=== PATIENT | female | born 1945 | race Caucasian/White ===

== ENCOUNTER 2016-05-24 08:37 | Day surgery (SDC) | payer OTHER ==
[2016-05-22 11:49] VITALS: BMI 23.6
[2016-05-24] MEDS ORDERED: CARBACHOL 0.01% INTRA-OCULAR 1.5 ML VIAL ONE (09:20)
[2016-05-24] MEDS ORDERED: BSS (NA/CA/MG/K) BALANCED SALT SOLUTION OPHTH SOLN 15 ML BOTTLE ONE ×2 (09:20→11:34)
[2016-05-24] MEDS: CIPROFLOXACIN 0.3% EYE DROPS 5 ML BOTTLE ONE ×3 (10:00→10:10)
[2016-05-24] MEDS: PHENYLEPHRINE 2.5% OPHTH SOLN 15 ML BOTTLE ONE ×3 (10:00→10:10)
[2016-05-24] MEDS: CYCLOPENTOLATE 2% OPHTH SOLN 2 ML BOTTLE ONE ×3 (10:00→10:10)
[2016-05-24] MEDS: TROPICAMIDE 1% OPHTH SOLN 15 ML BOTTLE ONE ×3 (10:00→10:10)
[2016-05-24] MEDS ORDERED: MIDAZOLAM HCL 2 MG/2 ML SINGLE DOSE VIAL ONE (11:20)
[2016-05-24] MEDS ORDERED: TETRACAINE 0.5% OPHTH SOLN 2 ML BOTTLE ONE (11:24)
[2016-05-24 12:24] VITALS: TEMP 98.9
[2016-05-24 12:27] VITALS: BP 116/65; PULSE 74
[2016-05-24] MEDS ORDERED: ONDANSETRON 4 MG/2 ML VIAL IVPUSH PRN (16:40)
[2016-05-24] MEDS ORDERED: ACETAMINOPHEN 325 MG TABLET (FP) PO PRN (16:40)
--- NOTE | 2016-07-19 16:52 | OP ---
DATE OF PROCEDURE: 05/24/2016 OPERATIVE PROCEDURE: Lens Phacoemulsification with Posterior Chamber Intraocular Lens Placement Right Eye PREOPERATIVE DIAGNOSIS: Visually Significant Cataract of Right Eye POSTOPERATIVE DIAGNOSIS: Visually Significant Cataract of Right Eye SURGEON: Herb Perla M.D. ANESTHESIA: MAC ANESTHESIOLOGIST: PROCEDURE: The patient was brought to the operating room and placed under monitored anesthesia care by Anesthesia. A drop of Tetracaine was then placed over the right eye. The patient was then prepped and draped in the usual sterile manner. A speculum was then placed over the right eye. The eye was then well irrigated with copious amounts of BSS (balanced salt solution). The operating microscope was then moved into position. A paracentesis was performed using a 15 degree blade. At this point 0.5 mL of 1% preservative-free lidocaine was injected into the anterior chamber. Amvisc plus was then injected into the anterior chamber. A clear corneal incision was then formed using a 2.2 mm keratome. A capsulorrhexis was then performed in a continuous circular fashion beginning with a cystotome, completed with an Utratas forceps. Hydrodissection was then performed using BSS on a cannula. The phaco probe was then introduced through the corneal wound and the cataract was removed using the phaco chop technique. Approximately 3 seconds of absolute phaco time was used. The remaining cortex was then removed using irrigation and aspiration with an I/A probe. The capsule was then filled with regular Amvisc and the capsule was noted to be intact. A previously selected foldable posterior chamber intraocular lens was then injected into the capsule through the corneal wound using a lens injector. It was then dialed into position using a Sinskey hook. The Amvisc was then removed using irrigation and aspiration. Miostat was then injected through the paracentesis to constrict the pupil. The paracentesis and corneal wound were then hydrated and noted to be water tight. A drop of Maxitrol was then placed over the eye. The speculum was removed and clear shield was taped over the eye. The patient tolerated the procedure well and there were no surgical complications. The patient was asked to follow up in my office the next day. HERB PERLA M.D. JADIEL/[id number]
== END 2016-05-24 12:25 | disposition home or self-care (01) ==
LOC: FASU 08:37
PROVIDERS: ATTEND Ophthalmology
PROC: 08RJ3JZ Replacement of Right Lens with Synthetic Substitute, Percutaneous Approach (ICD-10-PCS; principal; 2016-05-24 11:23)
DX: H26.8 Other specified cataract (principal)

== ENCOUNTER 2016-06-07 07:41 | Day surgery (SDC) | payer OTHER ==
[2016-06-06 10:55] VITALS: BMI 23.6
[2016-06-07] MEDS: PHENYLEPHRINE 2.5% OPHTH SOLN 15 ML BOTTLE ONE ×3 (08:15→08:25)
[2016-06-07] MEDS: CYCLOPENTOLATE 2% OPHTH SOLN 2 ML BOTTLE ONE ×3 (08:15→08:25)
[2016-06-07] MEDS: CIPROFLOXACIN 0.3% EYE DROPS 5 ML BOTTLE ONE ×3 (08:15→08:25)
[2016-06-07] MEDS: TROPICAMIDE 1% OPHTH SOLN 15 ML BOTTLE ONE ×3 (08:15→08:25)
[2016-06-07] MEDS ORDERED: MIDAZOLAM HCL 2 MG/2 ML SINGLE DOSE VIAL ONE (09:27)
[2016-06-07 10:20] VITALS: TEMP 98.2
[2016-06-07 12:04] VITALS: BP 129/56; PULSE 61
--- NOTE | 2016-06-08 10:49 | OP ---
DATE OF OPERATION: 06/07/2016 OPERATIVE PROCEDURE: Lens Phacoemulsification with Posterior Chamber Intraocular Lens Placement Left Eye PREOPERATIVE DIAGNOSIS: Visually Significant Cataract of Left Eye POSTOPERATIVE DIAGNOSIS: Visually Significant Cataract of Left Eye SURGEON: Herb Perla M.D. ANESTHESIA: MAC ANESTHESIOLOGIST: PROCEDURE: The patient was brought to the operating room and placed under monitored anesthesia care by Anesthesia. A drop of Tetracaine was then placed over the left eye. The patient was then prepped and draped in the usual sterile manner. A speculum was then placed over the left eye. The eye was then well irrigated with copious amounts of BSS (balanced salt solution). The operating microscope was then moved into position. A paracentesis was performed using a 15 degree blade. At this point 0.5 mL of 1% preservative-free lidocaine was injected into the anterior chamber. Amvisc plus was then injected into the anterior chamber. A clear corneal incision was then formed using a 2.2 mm keratome. A capsulorrhexis was then performed in a continuous circular fashion beginning with a cystotome, completed with an Utratas forceps. Hydrodissection was then performed using BSS on a cannula. The phaco probe was then introduced through the corneal wound and the cataract was removed using the phaco chop technique. Approximately 3 seconds of absolute phaco time was used. The remaining cortex was then removed using irrigation and aspiration with an I/A probe. The capsule was then filled with regular Amvisc and the capsule was noted to be intact. A previously selected foldable posterior chamber intraocular lens was then injected into the capsule through the corneal wound using a lens injector. It was then dialed into position using a Sinskey hook. The Amvisc was then removed using irrigation and aspiration. Miostat was then injected through the paracentesis to constrict the pupil. The paracentesis and corneal wound were then hydrated and noted to be water tight. A drop of Maxitrol was then placed over the eye. The speculum was removed and clear shield was taped over the eye. The patient tolerated the procedure well and there were no surgical complications. The patient was asked to follow up in my office the next day. HERB PERLA M.D. JADIEL/[id number]
== END 2016-06-07 10:45 | disposition home or self-care (01) ==
LOC: FASU 07:41
PROVIDERS: ATTEND Ophthalmology
PROC: 08RK3JZ Replacement of Left Lens with Synthetic Substitute, Percutaneous Approach (ICD-10-PCS; principal; 2016-06-07 09:37)
DX: H26.8 Other specified cataract (principal)

== ENCOUNTER 2018-12-19 16:37 | Emergency (ER) | payer OTHER ==
[2018-12-19 17:02] VITALS: BP 151/78; PULSE 70; TEMP 98; BMI 23.4
[2018-12-19] MEDS ORDERED: diphenhydrAMINE HCL 25 MG CAPSULE (FP) PO ONE (17:10)
--- NOTE | 2018-12-19 17:17 | PDOC ---
History of Present Illness - General History Source: Patient Exam Limitations: No Limitations - History of Present Illness Initial Comments: 12/19/18 17:08 73 yo female recently started on topical 5-FU for precancerous lesions to the face presents to the ED with burning and swelling to the face with tongue numbness. Pt states she was prescribed 5 FU by dermatology, applies it the the face at night for the past 7 nights. States the symptoms began around 1 pm today and have not progressed. Denies SOB, drooling, difficulty swallowing, CP, rash, abdominal pain, changes in bowel or bladder habits, confusion. <Syed Mcginnis - Last Filed: 12/19/18 17:45> <Irving Robertson - Last Filed: 12/19/18 17:50> - General Chief Complaint: Allergic Reaction Stated Complaint: ALLERGIC REACTION Time Seen by Provider: 12/19/18 16:45 Past History - Past Medical History Anemia: No Asthma: No Cancer: Yes (HX KIDNEY CANCER-PARTIAL NEPHRECTOMY DOESN'T REMEMBER RIGHT OR LEFT ) Cardiac Disorders: No CVA: No COPD: No CHF: No Dementia: No Diabetes: No GI Disorders: No Disorders: No HTN: No Hypercholesterolemia: Yes Liver Disease: No Psychiatric Problems: Yes Seizures: No Thyroid Disease: No - Surgical History Abdominal Surgery: No Appendectomy: No Cardiac Surgery: No Cholecystectomy: No Lung Surgery: No Neurologic Surgery: Yes (BRAIN SURGERY 2012/SEE BELOW) Orthopedic Surgery: (FOR CHIARI ONE FORMATION-DECOMPRESSION SURGERY) - Psycho Social/Smoking Cessation Hx Smoking History: Never smoked Have you smoked in the past 12 months: No If you are a former smoker, when did you quit?: 1980S Information on smoking cessation initiated: No Hx Alcohol Use: No Drug/Substance Use Hx: No Substance Use Type: Alcohol Hx Substance Use Treatment: No <Syed Mcginnis - Last Filed: 12/19/18 17:45> <Irving Robertson - Last Filed: 12/19/18 17:50> - Past Medical History Allergies/Adverse Reactions: Allergies Allergy/AdvReac Type Severity Reaction Status Date / Time latex Allergy Severe Hives Verified 05/24/16 10:00 Penicillins Allergy Severe Rash Verified 05/24/16 10:00 Home Medications: Ambulatory Orders Alendronate Na [Fosamax (Weekly)] 70 mg PO Q7D 05/22/16 Escitalopram Oxalate [Lexapro -] 10 mg PO DAILY 05/22/16 Gabapentin [Neurontin] 400 mg PO TID 05/22/16 Atorvastatin Ca [Lipitor] 10 mg PO HS 12/19/18 Fluorouracil [Efudex -] 1 applic TP HS 12/19/18 Review of Systems - Review of Systems Constitutional: No: Chills, Fever HEENTM: Yes: Other (facial swelling and burning with tongue numbness) Respiratory: No: Shortness of Breath Cardiac (ROS): No: Chest Pain, Edema, Palpitations ABD/GI: No: Constipated, Diarrhea, Nausea, Vomiting : No: Burning, Dysuria, Frequency, Flank Pain Musculoskeletal: No: Back Pain Integumentary: No: Change in Color, Rash Neurological: Yes: Numbness (tongue). No: Paresthesia, Weakness <Syed Mcginnis - Last Filed: 12/19/18 17:45> *Physical Exam - Vital Signs Last Vital Signs Temp Pulse Resp BP Pulse Ox 98 F 70 20 151/78 100 12/19/18 16:37 12/19/18 16:37 12/19/18 16:37 12/19/18 16:37 12/19/18 16:37 - Physical Exam General Appearance: Yes: Nourished, Appropriately Dressed. No: Apparent Distress HEENT: positive: EOMI, Pharynx Normal, Other (no facial or tongue swelling ). negative: Muffled/Hoarse voice, Pharyngeal Erythema, Tonsillar Exudate, Tonsillar Erythema, Excessive drooling Neck: positive: Supple. negative: Carotid bruit Respiratory/Chest: positive: Lungs Clear, Normal Breath Sounds. negative: Accessory Muscle Use, Crackles, Rales, Rhonchi, Stridor, Wheezing Cardiovascular: positive: Regular Rhythm, Regular Rate, S1, S2. negative: Edema , JVD, Murmur Vascular Pulses: Dorsalis-Pedis (R): 4+, Doralis-Pedis (L): 4+ Gastrointestinal/Abdominal: positive: Flat, Soft. negative: Pulsatile Mass, Distended, Guarding, Rebound, Tenderness Musculoskeletal: negative: CVA Tenderness Extremity: positive: Normal Capillary Refill, Normal Inspection Integumentary: positive: Normal Color, Dry, Warm. negative: Rash, Swelling Neurologic: positive: Fully Oriented, Alert, Normal Mood/Affect, Normal Response <Syed Mcginnis - Last Filed: 12/19/18 17:45> - Vital Signs Last Vital Signs Temp Pulse Resp BP Pulse Ox 98 F 70 20 151/78 100 12/19/18 16:37 12/19/18 16:37 12/19/18 16:37 12/19/18 16:37 12/19/18 16:37 <Irving Robertson - Last Filed: 12/19/18 17:50> ED Treatment Course - Medications Given in the ED: ED Medications Discontinued Medications Generic Name Dose Route Start Last Admin Trade Name Ramiroq PRN Reason Stop Dose Admin Diphenhydramine HCl 50 mg 12/19/18 17:10 12/19/18 17:32 Benadryl - PO 12/19/18 17:11 50 mg ONCE ONE Administration <Irving Robertson - Last Filed: 12/19/18 17:50> Discharge - Discharge Information Problems reviewed: Yes - Admission No <Syed Mcginnis - Last Filed: 12/19/18 17:45> <Irving Robertson - Last Filed: 12/19/18 17:50> - Discharge Information Clinical Impression/Diagnosis: Medication reaction, Tongue burning sensation, Facial burning Condition: Stable Disposition: HOME - Patient Discharge Instructions Patient Printed Discharge Instructions: DI for Adverse Drug Reaction -- Allergic Additional Instructions: Please stop using the topical cream until you see your Adult Parole Officer. Follow up with your primary doctor and orientation and mobility instructor within the next 48 hours. Return to the ER for new or concerning symptoms including but not limited to: tongue swelling, drooling, difficulty breathing new rashes. Thank you
--- NOTE | 2018-12-19 17:26 | PDOC ---
Attending Attestation - Resident Resident Name: Syed Mcginnis - ED Attending Attestation I have performed the following: I have examined & evaluated the patient, The case was reviewed & discussed with the resident, I agree w/resident's findings & plan, Exceptions are as noted - HPI HPI: 12/19/18 17:16 73 F with h/o HLD, presenting to ED with burning and tingling to her lips and tongue. Pt has been on 5-FU topical cream for 1 week. She states she applies it to her face every night. She has experienced a burning sensation to her face, but today she began to feel tingling in her lips and tongue. She states that her lips feel like they are swollen but do not appear to actually be swollen. She endorses pins and needles to her tongue. Denies any throat closing sensation. Denies SOB. Denies rash anywhere on her body. Pt states her symptoms began at 1pm today. Her last application of 5-FU was last night. Denies eating or drinking anything just prior to onset of symptoms. Pt denies any rash on her body. Has had allergic reactions to penicillin and latex in the past, but only suffered rashes. Since onset of symptoms, pt states she has noticed an improvement. Did not take anything for it. - Physicial Exam PE: 12/19/18 17:26 "GENERAL: Awake, alert, and fully oriented, in no acute distress. HEAD: No signs of trauma EYES: PERRLA, EOMI, sclera anicteric, conjunctiva clear ENT: Auricles normal inspection, hearing grossly normal, nares patent, oropharynx clear without exudates. Moist mucosa NECK: Nontender, no stepoffs, Normal ROM, supple, no lymphadenopathy, JVD, or masses LUNGS: Breath sounds equal, clear to auscultation bilaterally. No wheezes, and no crackles HEART: Regular rate and rhythm, normal S1 and S2, no murmurs, rubs or gallops ABDOMEN: Soft, nontender, normoactive bowel sounds. No guarding, no rebound. No masses EXTREMITIES: Normal range of motion, no edema. No clubbing or cyanosis. No cords, erythema, or tenderness NEUROLOGICAL: Cranial nerves II through XII intact. 5/5 strength and sensation in all extremities, Normal speech, normal gait, normal cerebellar function SKIN: Warm, Dry, normal turgor, no rashes or lesions noted. - Medical Decision Making 12/19/18 17:28 73 F with tingling to lips and tongue. No evidence of edema on exam. No uvular swelling, no tongue swelling, no lip swelling. Clear lungs. Pt with normal neuro exam. Likely medication side effect. Low suspicion for allergic reaction but will trial benadryl. - Benadryl 50mg PO - DC 5-FU until cleared by health services coordinator 12/19/18 17:45 Pt is well appearing, with normal vitals. Clinically stable for DC at this time. I discussed the physical exam findings, ancillary test results and final diagnoses with the patient. I answered all of the patient's questions. The patient was satisfied with the care received and felt comfortable with the discharge plan and treatment plan. The patient agrees to follow up with the primary care physician within 24-72 hours.
[2018-12-19] MEDS ORDERED: diphenhydrAMINE HCL 50 MG CAPSULE ONE (17:32)
== END 2018-12-19 17:46 | disposition home or self-care (01) ==
LOC: FER 16:37
DX: T78.40XA Allergy, unspecified, initial encounter (principal); T50.905A Adverse effect of unspecified drugs, medicaments and biological substances, initial encounter; Y92.89 Other specified places as the place of occurrence of the external cause; Z88.0 Allergy status to penicillin; Z91.09 Other allergy status, other than to drugs and biological substances; Z85.528 Personal history of other malignant neoplasm of kidney; E78.00 Pure hypercholesterolemia, unspecified; F99 Mental disorder, not otherwise specified; Z98.890 Other specified postprocedural states
CPT/HCPCS: 99281-25